=== PATIENT | male | born 1995 | race Caucasian/White ===

== ENCOUNTER 2023-10-22 10:45 | Emergency (ER) | payer BC ==
[~2023-10-22] VITALS: Wt 63.5 kg
[2023-10-22] MEDS ORDERED: PREDNISONE50 MG PO (11:42)
[2023-10-22] MEDS ORDERED: methylPREDNISolone sod succ 125 MG VIAL IM ONE (11:45)
== END 2023-10-22 12:05 | disposition home or self-care (01) ==
LOC: ED 10:45
DX: L23.7 Allergic contact dermatitis due to plants, except food (principal)